=== PATIENT | male | born 1970 | race Caucasian/White ===

== ENCOUNTER 2017-03-07 01:32 | Emergency (ER) | payer BC ==
[~2017-03-07 01:32] MED LIST: AMOXICOT500 MG PO; HYDROCHLOROTHIA1 POW; TYLENOL EXTRA500 MG PO
[2017-03-07 03:30] VITALS: BP 165/100
== END 2017-03-07 03:30 | disposition home or self-care (01) ==
LOC: ED 01:32
DX: T14.8 Other injury of unspecified body region (principal); F41.9 Anxiety disorder, unspecified; I10 Essential (primary) hypertension; E11.9 Type 2 diabetes mellitus without complications; Z79.84 Long term (current) use of oral hypoglycemic drugs; W57.XXXA Bitten or stung by nonvenomous insect and other nonvenomous arthropods, initial encounter; Y93.89 Activity, other specified; Y99.8 Other external cause status; Y92.89 Other specified places as the place of occurrence of the external cause

== ENCOUNTER 2017-11-21 14:34 | Emergency (ER) | payer SELFPAY ==
[~2017-11-21] VITALS: Ht 170.2 cm; Wt 98.0 kg
[2017-11-21 15:20] VITALS: Ht 170.2 cm; Wt 98.0 kg
[2017-11-21 17:33] LABS: BASOPHIL % 0.6 % (0-2); PLATELET COUNT 272 x10^3mcL (130-400); RED CELL DISTRIBUTION WIDTH 13.3 % (11.5-14.5)
[2017-11-21 17:42] LABS: CALCIUM 8.1 mg/dL (8.5-10.1); CARBON DIOXIDE 24.9 mmol/L (21-32); CHLORIDE SERUM 99 mmol/L (98-107); CREATININE SERUM 0.7 mg/dL (0.7-1.3); GFR1 > 60 mL/min; GLUCOSE SERUM 251 mg/dL (74-106); POTASSIUM SERUM 3.2 mmol/L (3.5-5.1); SODIUM SERUM 134 mmol/L (136-145)
[2017-11-21 17:50] LABS: ALBUMIN 3.7 g/dL (3.4-5.0); ALKALINE PHOSPHATASE 84 U/L (46-116); ALT/SGPT 79 U/L (16-63); AST/SGOT 18 U/L (15-37); BILIRUBIN TOTAL 0.6 mg/dL (0.20-1.00); TOTAL PROTEIN, SERUM 7.6 g/dL (6.4-8.2)
[2017-11-21 18:57] VITALS: BP 170/95
== END 2017-11-21 18:57 | disposition home or self-care (01) ==
LOC: ED 14:34
PROVIDERS: Emergency Medicine
DX: J11.1 Influenza due to unidentified influenza virus with other respiratory manifestations (principal); I10 Essential (primary) hypertension; E11.9 Type 2 diabetes mellitus without complications
CPT/HCPCS: 82962; J7030

== ENCOUNTER 2018-02-08 05:59 | Emergency (ER) | payer BC ==
[~2018-02-08] VITALS: Ht 170.2 cm; Wt 96.6 kg
[2018-02-08 06:05] VITALS: Ht 170.2 cm; Wt 96.6 kg
[2018-02-08 07:58] VITALS: BP 155/97
== END 2018-02-08 07:58 | disposition home or self-care (01) ==
LOC: ED 05:59
DX: J06.9 Acute upper respiratory infection, unspecified (principal)
CPT/HCPCS: Q0162

== ENCOUNTER 2018-11-25 22:30 | Emergency (ER) | payer BC ==
[~2018-11-25] VITALS: Ht 167.6 cm; Wt 99.3 kg
[2018-11-26 01:38] LABS: CALCIUM 8.4 mg/dL (8.5-10.1); CARBON DIOXIDE 28.1 mmol/L (21-32); CHLORIDE SERUM 101 mmol/L (98-107); CREATININE SERUM 0.8 mg/dL (0.7-1.3); GFR1 > 60 mL/min; GLUCOSE SERUM 269 mg/dL (74-106); POTASSIUM SERUM 3.6 mmol/L (3.5-5.1); SODIUM SERUM 136 mmol/L (136-145)
[2018-11-26 01:42] LABS: BASOPHIL % 0.6 % (0-2); PLATELET COUNT 345 x10^3mcL (130-400); RED CELL DISTRIBUTION WIDTH 13.4 % (11.5-14.5)
[2018-11-26 01:43] LABS: ALBUMIN 3.8 g/dL (3.4-5.0); ALKALINE PHOSPHATASE 98 U/L (46-116); ALT/SGPT 77 U/L (16-63); AST/SGOT 23 U/L (15-37); BILIRUBIN TOTAL 0.4 mg/dL (0.20-1.00)
[2018-11-26 03:40] VITALS: BP 127/73
== END 2018-11-26 03:41 | disposition home or self-care (01) ==
LOC: ED 22:30
PROVIDERS: Emergency Medicine
DX: G43.909 Migraine, unspecified, not intractable, without status migrainosus (principal); I10 Essential (primary) hypertension; E11.9 Type 2 diabetes mellitus without complications
CPT/HCPCS: J1885; J2270; J2765; J7030

== ENCOUNTER 2019-06-06 20:15 | Emergency (ER) | payer BC ==
[~2019-06-06] VITALS: Ht 167.6 cm; Wt 96.6 kg
[2019-06-06 20:20] VITALS: BP 163/97
== END 2019-06-06 22:41 | disposition left against medical advice (07) ==
LOC: ED 20:15
DX: Z53.21 Procedure and treatment not carried out due to patient leaving prior to being seen by health care provider (principal)

== ENCOUNTER 2020-05-30 21:48 | Emergency (ER) | payer BC ==
[~2020-05-30] VITALS: Ht 167.6 cm; Wt 97.1 kg
[2020-05-30 22:02] VITALS: Ht 167.6 cm; Wt 97.1 kg
[2020-05-30 23:14] VITALS: BP 159/80
== END 2020-05-30 23:14 | disposition home or self-care (01) ==
LOC: ED 21:48
DX: L60.0 Ingrowing nail (principal); I10 Essential (primary) hypertension; E11.9 Type 2 diabetes mellitus without complications